=== PATIENT | male | born 2000 | race Caucasian/White ===

== ENCOUNTER 2023-06-06 00:04 | Emergency (ER) | payer OTHER ==
[2023-06-06 00:08] VITALS: BP 125/68; PULSE 77; RESP 18; TEMP 97.7; BMI 25.5
== END 2023-06-06 01:53 | disposition home or self-care (01) ==
LOC: JER 00:04
DX: S60.152A Contusion of left little finger with damage to nail, initial encounter (principal); W23.0XXA Caught, crushed, jammed, or pinched between moving objects, initial encounter
CPT/HCPCS: 73140-TC-LT-FY; 99283-25